=== PATIENT | male | born 1960 ===

== ENCOUNTER 2018-05-03 08:53 | Outpatient (CLI) | payer BC ==
[~2018-05-03] VITALS: Ht 185.4 cm; Wt 106.8 kg
--- NOTE | ~2018-05-03 | OP ---
PATIENT NAME: DES HOOD MEDICAL RECORD: [id number] :58 LOCATION:D.CAT ADMISSION DATE: SURGEON: TRU MORRIS MD DATE OF OPERATION: 05/03/2018 PROCEDURES: 1. MANAGEMENT RECRUITER and stent, bilateral iliacs. 2. Aortofemoral runoff. 3. Abdominal aortography. INDICATIONS: Claudication and peripheral vascular disease. PROCEDURE IN DETAIL: After informed consent was obtained with detailed description of risks and benefits as well as alternative therapies, the patient elected to proceed with angiogram and angioplasty. Both femoral areas were prepped and draped in normal sterile fashion. Both were cannulated via modified Seldinger technique with placement of 6-Grenadian sheath. FINDINGS: Abdominal aortography was performed. The catheter was pulled down for aortofemoral runoff. Abdominal aortography reveals no significant abdominal aortic disease. No dissection or aneurysm formation. RIGHT LEG: A. Iliac: The common iliac has previously placed stent. This is totally occluded. There is then a long area of greater than 80% stenosis throughout the external iliac. B. Femoral system: The common superficial and deep femoral have moderate irregularities, but no flow-limiting stenosis. C. Popliteal and infrapopliteal vessels are patent with good 3-vessel runoff to the foot. LEFT LEG: A. Iliac: The common iliac has 80% to 85% stenosis proximally. B. Femoral system: The common and deep femoral are widely patent. Superficial femoral has an area of greater than 80% stenosis in the mid distal vessel. C. Popliteal and infrapopliteal vessels are patent with good 3-vessel runoff to the foot. MANAGEMENT RECRUITER AND STENT OF BOTH ILIACS: RIGHT ILIAC: We were able to traverse the total occlusion throughout the right leg and ballooned the area of in-stent restenosis with 7-0 balloon and ballooned the area of the external iliac with 6-0 balloon. This yielded suboptimal result with severe intimal dissection. Stenting was undertaken with a 7 x 80 SMART stent. Result was 0% residual stenosis throughout. LEFT ILIAC: The left iliac was addressed with a 7-0 balloon. This yielded suboptimal result with severe intimal dissection. Stenting was undertaken with a 7 x 29 Evita stent. Result was 0% residual stenosis. OVERALL IMPRESSION: Successful MANAGEMENT RECRUITER and stent of both iliacs with right going from 100% initial stenosis to 0% residual and left going from 85% stenosis to 0% residual. If he continues to have left leg claudication, we can address the SFA disease on the left with an antegrade stick. TRANSINT:[id number] Voice Confirmation ID: [id number] DOCUMENT ID: [id number] OPERATIVE REPORT [id number] DES HOOD JEFFREY MD at 1951 CC: [id number] DICTATION DATE: 05/03/18 1214 ASSISTANT PROFESSOR OF ART: 05/03/18 1228 DEP CLI 05/03/18 [place] [id number] [place] [id number]
--- NOTE | ~2018-05-03 | HEMODYNAMI ---
PATIENT:DES HOOD MEDICAL RECORD: [id number] : 58 LOCATION:[facility] ADMISSION DATE: 05/03/18 Generatedon:05/03/201812:11 Patient name: DES HOOD Patient #: [id number] SSN: : 1960 Date of study: 05/03/2018 Page: Of Hemodynamic Procedure Report Patient Data Patient Demographics Procedure consent was obtained First Name: DES Gender: Male Last Name: ERWIN : 1960 Patient #: [id number] Age: 57 year(s) Race: Additional ID: [id number] Contact details [address]: [address] [place] [address] State: [place] City: [place] Zip code: [address] Past Medical History Allergies: No known allergies Admission Admission Data Admission Date: 05/03/2018 Admission Time: 8:53 Lab Results Lab Result Date: 05/03/2018 Lab Result Time: 0:00 Biochemistry Name Units Result Min Max BUN mg/dl 12 --(-*--)-- 7 18 Creatinine mg/dl 1 --(--*-)-- 0.6 1.3 CBC Name Units Result Min Max Hemoglobin g/dl 13.5 --(*---)-- 13.5 17.5 Procedure Procedure Types Cath Procedure Diagnostic Procedure Sedation Charges Moderate Sedation up to 30 minutes Peripheral Cath Diagnostic Procedure Cath Peripheral Lgmxa-Nrhabbl-Laz-Off Peripheral vascular Intervention Stent Stent Iliac w/plasty Initial Stent-Arterial Inititial Procedure Description Procedure Date Procedure Date: 05/03/2018 Procedure Start Time: 11:32 Procedure End Time: 12:09 Procedure Staff Name Function Marko Grayson MD Performing Physician Caroline Ruiz RT Scrub Nicko Mccormack RN Nurse Abel Weeks RT Customs Director Kaya Higginbotham RT Monitor Procedure Data Cath Procedure Fluoroscopy Diagnostic fluoroscopy Total fluoroscopy Time: 9.8 time: 9.8 min min Diagnostic fluoroscopy Total fluoroscopy dose: dose: 1001 mGy 1001 mGy Contrast Material Contrast Material Type Amount (ml) Isovue 300 176 Entry Location Entry Primary Successful Side Size Upsize Upsize Entry Closure Succes sful Closure Location (Fr) 1 (Fr) 2 (Fr) Remarks Device Remarks Femoral Right 5 Fr 6 Fr 6 Fr Exoseal artery Long Short Femoral Left 6 Fr 6 Fr Exoseal artery Long Short Estimated blood loss: 5 ml Diagnostic catheters Device Type Used For End Catheter Placement DIAGNOSTIC UF 5Fr Multi-vessel catheter ([id number]) Angiography DIAGNOSTIC 3DRC 5Fr Multi-vessel catheter ([id number]) Angiography Procedure Complications No complications Procedure Medications Medication Administration Route Dosage 0.9% NaCl I.V. 100 ml/hr Oxygen etCO2 Nasal cannula 2 l/min Heparin Flush Bag added to field 2 bags (1000units/500ml NS) Lidocaine 2% added to field 20 Versed I.V. 2 mg Fentanyl I.V. 100 mcg Versed I.V. 1 mg Heparin Bolus I.V. 5000 units Integrilin (Bolus I.V. 9.5 ml 2mg/ml) Integrilin (Bolus wasted 0.5 ml 2mg/ml) Versed I.V. 1 mg Fentanyl I.V. 50 mcg Fentanyl I.V. 50 mcg Plavix P.O. 600 mg Hemodynamics Rest HGB: 13.5 (g/dl) Heart Rate: 63 (bpm) Snapshots Pre Cath Intra NCS Post Cath Vital Signs Time Heart Resp SPO2 etCO2 NIBP (mmHg) Rhythm Pain Sedation Rate (ipm) (%) (mmHg) Status Level (bpm) 11:04:13 61 13 99 0 170/90(133) NSR 0 (11) 10(A) , No pain 11:08:37 56 15 99 0 168/80(134) NSR 0 (11) 10(A) , No pain 11:13:06 54 10 99 0 158/75(128) NSR 0 (11) 10(A) , No pain 11:17:30 54 20 97 0 167/89(146) NSR 0 (11) 10(A) , No pain 11:22:00 52 14 98 24 142/73(108) NSR 0 (11) 10(A) , No pain 11:26:22 52 14 96 12.7 148/76(113) NSR 0 (11) 10(A) , No pain 11:30:47 50 14 96 24 134/69(111) NSR 0 (11) 10(A) , No pain 11:35:05 61 13 94 28.4 131/77(110) NSR 0 (11) 9(A) , No pain 11:39:25 51 15 96 32.2 127/67(104) NSR 0 (11) 9(A) , No pain 11:44:42 52 22 97 22.4 117/71(110) NSR 0 (11) 9(A) , No pain 11:49:03 53 32 98 16.5 130/49(110) NSR 0 (11) 10(A) , No pain 11:53:23 52 13 97 0 129/63(92) NSR 0 (11) 10(A) , No pain 11:57:43 48 23 96 27 125/66(102) NSR 0 (11) 9(A) , No pain 12:02:01 50 14 93 26.9 116/65(100) NSR 0 (11) 9(A) , No pain 12:06:17 51 10 97 140/65(100) NSR 0 (11) 10(A) , No pain Medications Time Medication Route Dose Verified Delivered Reason Notes Effectiveness by by 11:21:04 0.9% NaCl I.V. 100 Nicko Nicko Per physician ml/hr Ksenia Mccormack RN RN 11:21:14 Oxygen etCO2 2 Nicko Nicko Per physician Nasal l/min Ksenia Mccormack cannula RN RN 11:21:24 Heparin Flush added 2 Nicko Nicko used for Bag to bags Ksenia Mccormack procedure (1000units/500ml field RN RN NS) 11:21:34 Lidocaine 2% added 20ml Nicko Nicko for local to vial Ksenia Mccormack anesthetic field RN RN 11:32:36 Versed I.V. 2 mg Nicko Nicko for sedation Ksenia Mccormack RN RN 11:32:44 Fentanyl I.V. 100 Nicko Nicko for sedation mcg Ksenia Mccormack RN RN 11:33:55 Versed I.V. 1 mg Nicko Nicko for sedation Ksenia Mccormack RN RN 11:44:21 Heparin Bolus I.V. 5000 Nicko Nicko for units Ksenia Mccormack anticoagulation RN RN 11:44:38 Integrilin I.V. 9.5 Nicko Nicko for (Bolus 2mg/ml) ml Ksenia Mccormack antiplatelet VASILIY RN therapy 11:44:53 Integrilin wasted 0.5 Nicko Nicko to sharp's (Bolus 2mg/ml) ml Ksenia Mccormack RN, RN 11:49:09 Versed I.V. 1 mg Nicko Nicko for sedation Ksenia Mccormack RN, RN 11:51:16 Fentanyl I.V. 50 Nicko Nicko for sedation mcg Ksenia Mccormack RN, RN 11:56:24 Fentanyl I.V. 50 Nicko Nicko for sedation mcg Ksenia Mccormack RN, RN 12:06:57 Plavix P.O. 600 Nicko Nicko for mg Ksenia Mccormack antiplatelet RN RN therapy Procedure Log Time Note 10:40:05 Abel Weeks RT(R) sent for patient. Start room use. 10:56:24 Informed consent obtained and on chart 10:58:10 Time tracking: Regular hours (M-F 7:00 - 5:00) 10:58:14 Plan of Care:Hemodynamics will remain stable., Cardiac rhythm will remain stable., Comfort level will be maintained., Respiratory function will remain adequate., Patient/ family verbilizes understanding of procedure., Procedure tolerated without complication., Recovers from procedure without complications.. 10:58:19 Patient received from Pre/Post Procedure Room to CCL 2 Alert and oriented. Tansferred to table in Supine position. 10:58:20 Warm blankets applied, and hong hugger turned on for patient comfort. 10:58:20 Correct patient and procedure confirmed by team. 10:58:21 ECG and BP/O2 sat monitors applied to patient. 11:02:57 Vital chart was started 11:02:58 Baseline sample Acquired. 11:03:02 Rhythm: sinus rhythm 11:03:03 Full Disclosure recording started 11:03:24 H&P Date Dictated: 04/30/2018 Within 30 days and on chart.. 11:03:25 Pre-procedure instructions explained to patient. 11:03:25 Pre-op teaching completed and patient verbalized understanding. 11:03:26 Family in patients room. 11:03:29 Patient NPO since Midnight. 11:03:36 Patient allergic to No known allergies 11:03:38 Is the patient allergic to Iodine/contrast media? No. 11:03:44 Is patient on blood thinner?No 11:03:46 Patient diabetic? No. 11:03:50 ----Pre-sedation anethsthesia assessment.---- 11:03:52 Previous problem with sedation/anesthesia? No ? 11:03:53 Snore? Yes 11:03:54 Sleep apnea? Yes 11:03:56 Deviated septum? No 11:03:57 Opens mouth fully? Yes 11:03:58 Sticks out tongue? Yes 11:04:03 Airway obstruction? Yes COPD 11:04:09 Dentures? No ? 11:04:15 Pre procedure: right dorsailis pedis pulse 1+ Palpable, but thready & weak; easily obliterated 11:04:20 Pre procedure: left dorsailis pedis pulse 1+ Palpable, but thready & weak; easily obliterated 11:04:23 Patient pain scale 0/10 ?. 11:04:28 IV patent on arrival in left antecubital with 0.9% NaCl at 10ml/hr. 11:05:50 Lab Result : BUN 12 mg/dl 11::50 Lab Result : Hemoglobin 13.5 g/dl 11:05:50 Lab Result : Creatinine 1 mg/dl 11:06:45 Bilateral groins area was prepped with chlora-prep and draped in sterile fashion 11::46 Alarms reviewed by R. N. 11:06:47 Sharps counted by scrub and verified by R.N. 11:09:59 Baseline sample Acquired. 11:21:04 0.9% NaCl 100 ml/hr I.V. was administered by Nicko Mccormack RN; Per physician; 11:21:14 Oxygen 2 l/min etCO2 Nasal cannula was administered by Nicko Mccormack RN; Per physician; 11:21:24 Heparin Flush Bag (1000units/500ml NS) 2 bags added to field was administered by Nicko Mccormack RN; used for procedure; 11::34 Lidocaine 2% 20ml vial added to field was administered by Nicko Mccormack RN; for local anesthetic; ::45 Physician arrived ::45 --------ALL STOP TIME OUT------ :45 Final Timeout: patient, procedure, and site verified with staff and physician. All members of the team are in agreement. 11:29:48 Bilateral groins site verified by team. 11:29:50 Physical assessment completed. ASA score P 2 - A patient with mild systemic disease as per Marko Grayson MD. 11:29:54 Sedation plan: IV Moderate Sedation Medication:Versed, Fentanyl 11:30:48 Use device set Radial Dx or PCI 11:30:49 ACIST Syringe (41728) opened to sterile field. 11:30:49 Medline Cath Pack ([id number]) opened to sterile field. 11:30:50 Bag Decanter (2002S) opened to sterile field. 11:30:50 DIAGNOSTIC WIRE .035 260cm J wire (756393) opened to sterile field. 11:30:51 ACIST Hand Control (99464) opened to sterile field. 11:30:51 ACIST Manifold (65029) opened to sterile field. 11:30:52 Tegaderm 4 x 4 (1626W) opened to sterile field. 11:31:05 SHEATH Prelude 5Fr 0.035 (BMI-4A-86-035) opened to sterile field. 11:32:06 Procedure started. 11:32:31 Local anesthetic to right femoral artery with Lidocaine 2% by Marko Grayson MD.INITIAL ACCESS ONLY 11:32:36 Versed 2 mg I.V. was administered by Nicko Mccormack RN; for sedation; 11:32:44 Fentanyl 100 mcg I.V. was administered by Nicko Mccormack RN; for sedation; 11:32:54 A 5 Fr sheath was inserted into the Right Femoral artery 11:33:28 A DIAGNOSTIC UF 5Fr catheter ([id number]) was advanced over the wire and used for Multi-vessel Angiography. 11:33:55 Versed 1 mg I.V. was administered by Nicko Mccormack RN; for sedation; 11:34:21 Catheter removed. unable to cannulate vessel. 11:34:50 A DIAGNOSTIC 3DRC 5Fr catheter (685497N) was advanced over the wire and used for Multi-vessel Angiography. 11:36:23 3drc exchanged for UF 11:38:42 SHEATH 6FR Destination (RSR01) opened to sterile field. 11:42:02 SHEATH Prelude 6Fr 0.035 (FEN-6W-11-035) opened to sterile field. 11:42:42 INFLATOR Merit BasixCompak (DK3400) opened to sterile field. 11:42:42 SHEATH 6Fr Prelude Radial ([id number]) opened to sterile field. 11:42:43 Catheter removed. 11:43:02 Sheath upsized to a 6 Fr Long. 11:43:17 CHOICE PT Extra Support J 300cm guide wire ([id number]) opened to sterile field. 11:43:18 choice pt wire advanced. 11:44:21 Heparin Bolus 5000 units I.V. was administered by Nicko Mccormack RN; for anticoagulation; 11:44:32 Inflate balloon Inflation number: 1 A SABER 7 x 4 x 150 balloon ([id number]) was prepped and advanced across the Ostial Common Iliac, Right, then inflated to 13 CHON for 0:10 (min:sec). 11:44:38 Integrilin (Bolus 2mg/ml) 9.5 ml I.V. was administered by Nicko Mccormack RN; for antiplatelet therapy; 11:44:53 Integrilin (Bolus 2mg/ml) 0.5 ml wasted was administered by Nicko Mccormack RN; to sharp's; 11:45:02 Inflation number: 2 The SABER 7 x 4 x 150 balloon ([id number]) was reinflated across the Ostial Common Iliac, Right, to 10 CHON for 0:10 (min:sec). 11:47:39 Balloon removed over the wire. 11:48:19 Inflate balloon Inflation number: 3 A SABER 6.0 x 8 x 150 balloon ([id number]) was prepped and advanced across the Ostial Common Iliac, Right, then inflated to 11 CHON for 0:10 (min:sec). 11:48:38 Balloon removed over the wire. 11:49:09 Versed 1 mg I.V. was administered by Nicko Mccormack RN; for sedation; 11:51:16 Fentanyl 50 mcg I.V. was administered by Nicko Mccormack RN; for sedation; 11:51:53 UF catheter advanced 11:53:39 GLIDE WIRE ANGLE 260cm (BB1544) opened to sterile field. 11:54:37 SHEATH 6FR Brite Tip 35cm ([id number]) opened to sterile field. 11:54:54 Local anesthetic to left femerol artery with Lidocaine 2% by Marko Grayson MD.ADDITIONAL ACCESS 11:55:10 A 6 Fr Long sheath was inserted into the Left Femoral artery 11:56:24 Fentanyl 50 mcg I.V. was administered by Nicko Mccormack RN; for sedation; 11:56:56 DIAGNOSTIC WIRE .035 260cm J wire (287948) opened to sterile field. 11:57:10 original j wire damaged 12:00:10 Place stent Inflation Number: 1 A CAROL 7 x 29 x 135 stent ([id number]) was prepped and advanced across the Ostial Common Iliac, Left. The stent was deployed at 13 CHON for 0:10 (min:sec). 12:00:54 Stent catheter was removed intact over wire. 12:02:33 SMART 7 X 80 X 120 stent ([id number]) was deployed across Ostial Common Iliac, Right . 12:03:25 Stent catheter was removed intact over wire. 12:03:34 Wire removed. 12:03:45 Wire removed. 12:04:04 Sheath upsized to a 6 Fr Short. 12:04:22 Sheath upsized to a 6 Fr Short. 12:04:35 EXOSEAL 6Fr (EX600) opened to sterile field. 12:04:36 EXOSEAL 6Fr (EX600) opened to sterile field. 12:04:49 Sheath removed intact; hemostasis achieved with Exoseal to the Right Femoral artery. 12:04:55 Sheath removed intact; hemostasis achieved with Exoseal to the Left Femoral artery. 12:04:58 Procedure ended.(Physican Out) 12:05:49 Fluoroscopy time 09.80 minutes. 12:05:54 Fluoroscopy dose: 1001 mGy 12:05:54 Flurop Dose total: 1001 12:06:20 Contrast amount:Isovue 300 176ml. 12:06:57 Plavix 600 mg P.O. was administered by Nicko Mccormack RN; for antiplatelet therapy; 12:07:34 Sharps counted by scrub and verified by R.N. 12:08:03 Insertion/operative site no bleeding no hematoma. 12:08:06 Post-op/insertion site Right Femoral artery dressed using a 4 x 4 and Tegaderm. 12:08:09 Post-op/insertion site Left Femoral artery dressed using a 4 x 4 and Tegaderm. 12:08:12 Post procedure rhythm: unchanged. 12:08:15 Estimated blood loss: 5 ml 12:08:16 Post procedure instruction explained to patient.Patient verbalizes understanding. 12:08:16 Patient needs reinforcement of post procedure teaching. 12:09:05 Procedure type changed to Cath procedure, Diagnostic procedure, Sedation Charges, Moderate Sedation up to 30 minutes, Peripheral Cath Diagnostic Procedure, Cath Peripheral, Aqohg-Lrjsity-Acl-Off, Peripheral vascular Intervention, Stent, Stent Iliac w/plasty Initial, Stent-Arterial Inititial 12:09:07 Procedure and supply charges have been captured, reviewed, submitted and are correct. 12:09:11 Procedure Complication : No complications 12::26 Vital chart was stopped 12::27 See physician's report for complete and final results. 12::32 Report given to Pre/Post Procedure Room. 12::34 Patient transfered to Pre/Post Procedure Room with Stretcher. 12::38 Procedure ended. 12::38 Full Disclosure recording stopped 12:09:44 ACC-PCI Only Patient was given prescriptions, or instructed by Marko Grayson MD to start/continue the following medications upon discharge: Plavix 12:09:46 End room use (Document Last) Intervention Summary Intervention Notes Time ActionType Lesion and Equipment Action# Pressure Duration Attributes Used 11:44:32 Inflate Ostial SABER 7 x 4 1 13 00:10 balloon Common x 150 Iliac, balloon Right ([id number]) 11:45:02 Reinflate Ostial SABER 7 x 4 2 10 00:10 balloon Common x 150 Iliac, balloon Right ([id number]) 11:48:19 Inflate Ostial SABER 6.0 x 3 11 00:10 balloon Common 8 x 150 Iliac, balloon Right ([id number]) 12:00:10 Place stent Ostial CAROL 7 x 1 13 00:10 Common 29 x 135 Iliac, Left stent ([id number]) 12:02:33 Deploy self Ostial SMART 7 X 1 expanding Common 80 X 120 stent Iliac, stent Right ([id number]) Device Usage Item Name Manufacture Quantity Catalog Number Hospital Part Current Minimal Lot# / Charge Number Stock Stock Serial# Code ACIST Syringe Acist 1 38694 248808 175242 [id number] 20 (98284) [employer] Medline Cath Cardinal 1 [id number] 301014 34080 851743 5 Pack Health ([id number]) Bag Decanter Microtek 1 956146 12294 683719 5 () [employer] DIAGNOSTIC WIRE [facility] [place] 2 325054 227579 168363 831198 30 .035 260cm J wire (017398) ACIST Hand Acist 1 48865 293772 341126 427884 5 Control (91456) [employer] ACIST Manifold Acist 1 62594 987558 791790 250337 5 (57649) [employer] Tegaderm 4 x 4 3M 1 1626W 401515 430239 058755 5 (1626W) SHEATH Prelude Merit 1 CXP-8E-66-035 033230 197375 670974 5 5Fr 0.035 Medical (EQX-7W-36-035) DIAGNOSTIC UF Cardinal 1 [id number] 826934 102918 381781 10 5Fr catheter Health (211225T3) DIAGNOSTIC 3DRC Cardinal 1 [id number] 640245 027844 010102 9 5Fr catheter Health (962886T) SHEATH 6FR Terumo 1 RSR01 609370 05981 153910 5 Destination (RSR01) SHEATH Prelude Merit 1 HTZ-9T-57-35 418995 3259368 481263 5 6Fr 0.035 Medical (VPY-4A-30-035) INFLATOR Merit Merit 1 QA1056 746097 610408 894002 15 BasixCompak Medical (GX3880) SHEATH 6Fr Merit 1 [id number] 166486 610539 062302 5 Prelude Radial Medical ([id number]) CHOICE PT Extra Maxatawny 1 [id number] 120823 20190225 560222 5 Support J 300cm Scientific guide wire (2261243D8) SABER 7 x 4 x Cardinal 1 [id number] 703999 891535 594647 5 150 balloon Health (92553859M) SABER 6.0 x 8 x Cardinal 1 [id number] 094790 177039 879187 5 150 balloon Health (20432776T) GLIDE WIRE Terumo 1 WY9353 199848 366509 929929 5 ANGLE 260cm (OO9272) SHEATH 6FR Cardinal 1 [id number] 566513 546628 406336 1 Brite Tip 35cm Health (654657R) CAROL 7 x 29 Cardinal 1 [id number] 978340 562928 5 86897534 x 135 stent Health ([id number]) SMART 7 X 80 X Cardinal 1 [id number] 221983 263668 0 [id number] 120 stent Health ([id number]) EXOSEAL 6Fr Cardinal 2 EX600 028471 532335 357840 10 (EX600) Health Signature Audit [place] Stage Time Signature Unsigned Intra-Procedure 05/03/2018 Kaya Higginbotham 12:11:47 PM RT(R) Signatures Monitor : Kaya Higginbotham RT Signature : Date : Time : [place] [id number] [place] [address]
[2018-05-03] MEDS ORDERED: BAYER CHEWABLE81 MG PO (09:20)
[2018-05-03] MEDS ORDERED: LISINOPRIL10 MG PO (09:20)
[2018-05-03 09:27] VITALS: BP 150/74; Ht 185.4 cm; Wt 106.8 kg
[2018-05-03 09:46] LABS: HEMATOCRIT 40.2 % (42.0-54.0); HEMOGLOBIN 13.5 g/dL (13.5-17.5); LYMPHOCYTES 13.5 % (15-50); MCH 30.1 pg (26.0-34.0); MCHC 33.6 g/dL (31.0-37.0); MCV 89.7 fL (80.0-100.0); NEUTROPHILS 77.9 % (40-80); PLATELET COUNT 239 10x3/uL (130-400); RBC 4.48 10x6/uL (4.20-6.10); RDW 16.8 % (11.5-14.5); WBC 9.4 10x3/uL (4.8-10.8)
[2018-05-03 09:55] LABS: CALC OSMOLALITY 270 mosm/kg (275-300); CALCIUM 8.8 mg/dL (8.5-10.1); CARBON DIOXIDE 25.3 mmol/L (21.0-32.0); CHLORIDE - SERUM 104 mmol/L (98-107); GLUCOSE 89 mg/dL (74-106); POTASSIUM - SERUM 4.2 mmol/L (3.5-5.1); SODIUM 136 mmol/L (136-145); UREA NITROGEN 12 mg/dL (7-18); eGFR NON AFRICAN AMERICAN 81 mL/min (90-120)
[2018-05-03] MEDS ORDERED: PLAVIX75 MG PO (12:17)
== END 2018-05-03 14:10 | disposition home or self-care (01) ==
LOC: D.CATH 08:53
PROVIDERS: Internal Medicine Interventional Cardiology
DX: I70.213 Atherosclerosis of native arteries of extremities with intermittent claudication, bilateral legs (principal); Z01.812 Encounter for preprocedural laboratory examination